=== PATIENT | male | born 1940 | race Caucasian/White ===

== ENCOUNTER 2018-09-24 03:06 | Inpatient (IN) ==
[2018-09-24] MEDS ORDERED: PROPOFOL 1,000 MG/100 ML BOTTLE IV ONE (03:54)
[2018-09-24] MEDS ORDERED: ONDANSETRON 4 MG/2 ML VIAL IV PRN (04:54)
[2018-09-24] MEDS ORDERED: MORPHINE 4 MG/1 ML VIAL IV PRN (04:54)
[2018-09-24] MEDS ORDERED: GLUCAGON 1 MG VIAL IM PRN (05:08)
[2018-09-24] MEDS ORDERED: DEXTROSE 50% 25 GM/50 ML VIAL IV PRN (05:08)
[2018-09-24] MEDS: PROPOFOL 1,000 MG/100 ML BOTTLE IV SCH ×5 (05:30→22:20)
[2018-09-24 05:47] LABS: ABG Base Excess 8.7 MMOL/L (-2.5-2.5); ABG HCO3 32.5 MMOL/L (20-26); ABG PCO2 44.7 MM HG (35-48); ABG TCO2 30.3 MMOL/L (23-27)
[2018-09-24 06:15] LABS: Basophils % 0.5 % (0.0-0.8); Eosinophils % 0.6 % (0.00-10.9); Hematocrit 27.8 VOL% (42.0-52.0); Hemoglobin 8.8 GM/DL (14.0-18.0); Immature Granulocytes % 0.5 %; Immature Granulocytes Absolute 0.03 #; Lymphocytes # 0.9 10*3/uL (1.4-4.0); Lymphocytes % 14.6 % (21.2-54.2); Mean Corpuscular HGB Conc 31.7 GM/DL (32-36); Mean Corpuscular Hemoglobin 29 PG (27-34); Mean Corpuscular Volume 90.6 FL (87-102); Mean Platelet Volume 11.4 FL (9.6-12.0); Monocytes # 0.5 10*3/uL (0.11-0.8); Monocytes % 7.5 % (1.7-12.7); Neutrophils # 4.8 10*3/uL (1.4-7.4); Neutrophils % 76.3 % (38.7-73.9); Platelet Count 134 T/CUMM (130-400); Red Blood Count 3.07 MC/CUMM (3.8-5.5); Red Cell Distribution Width 13.2 % (9.3-17.3); White Blood Count 6.3 T/CUMM (4-12)
[2018-09-24 06:49] LABS: Thyroid Stimulating Hormone 1.31 uIU/ml (0.358-3.74)
[2018-09-24 06:53] LABS: Calcium 8.6 MG/DL (8.5-10.1); Osmolality,Calculated 275.1 MOS/KG (273-304)
[2018-09-24 07:47] LABS: Apearance,Urine CLEAR (Clear); Bilirubin,Urine Negative (Negative); Blood, Urine Small mg/dL (Negative); Glucose,Urine (UA) Negative (Negative); Ketones,Urine 5 mg/dL (Negative); Mucus,Urine Occasional /LPF (Occasional); Nitrite,Urine Negative (Negative); Protein,Urine Negative; RBC,Urine 12 /HPF (0-4); Urine Color Yellow (Yellow); Urine Specific Gravity 1.008 (1.001-1.035); Urine Urobilinogen < 2.0 EU/DL (0.2-1.0); WBC,Urine <1 /HPF (0-6)
[2018-09-24] MEDS: PANTOPRAZOLE 40 MG VIAL IV SCH (08:09)
[2018-09-24] MEDS: LOSARTAN 50 MG TABLET PO SCH ×2 (08:09→21:02)
[2018-09-24] MEDS: ROSUVASTATIN 20 MG TABLET PO SCH (08:09)
[2018-09-24] MEDS: ASPIRIN CHEW 81 MG TABLET PO SCH (08:09)
[2018-09-24] MEDS: ISOSORBIDE DINITRATE 20 MG TABLET PO SCH ×3 (08:09→21:02)
[2018-09-24] MEDS: CLOPIDOGREL 75 MG TABLET PO SCH (08:09)
[2018-09-24] MEDS: CARBIDOPA/LEVODOPA 25-100 MG TABLET PO SCH ×3 (08:09→21:02)
[2018-09-24] MEDS: ENOXAPARIN 40 MG/0.4 ML SYRINGE SUBCUT SCH (08:10)
[2018-09-24] MEDS: INSULIN REGULAR 100 UNIT/ML SUBCUT SCH ×3 (08:10→17:26)
[2018-09-24] MEDS: POTASSIUM CHLORIDE 20 MEQ TABLET PO SCH ×2 (08:10→21:02)
[2018-09-24] MEDS: FUROSEMIDE 40 MG/4 ML VIAL IV SCH ×2 (08:11→15:45)
[2018-09-24 08:37] LABS: % Iron Saturation 22.6 % (18-50)
[2018-09-24] MEDS: TAMSULOSIN 0.4 MG CAPSULE PO SCH (21:03)
[2018-09-25] MEDS: INSULIN REGULAR 100 UNIT/ML SUBCUT SCH ×4 (00:42→17:14)
[2018-09-25] MEDS: PROPOFOL 1,000 MG/100 ML BOTTLE IV SCH ×4 (03:24→19:02)
[2018-09-25 03:57] LABS: ABG Base Excess 9.6 MMOL/L (-2.5-2.5); ABG HCO3 32.7 MMOL/L (20-26); ABG Oxygen Saturation 98.8 % (95-100); ABG PCO2 38.6 MM HG (35-48); ABG PH 7.546 (7.35-7.45); ABG PO2 176.8 MM HG (80-95); ABG TCO2 33.9 MMOL/L (23-27); Pt O2 Delivery Device Ventilator
[2018-09-25 04:24] LABS: Basophils % 0.7 % (0.0-0.8); Eosinophils # 0.2 10*3/uL (0.0-0.87); Eosinophils % 3.1 % (0.00-10.9); Hematocrit 28.9 VOL% (42.0-52.0); Immature Granulocytes % 0.4 %; Immature Granulocytes Absolute 0.02 #; Lymphocytes # 1.3 10*3/uL (1.4-4.0); Lymphocytes % 23.7 % (21.2-54.2); Mean Corpuscular HGB Conc 31.1 GM/DL (32-36); Mean Corpuscular Hemoglobin 28 PG (27-34); Mean Corpuscular Volume 90.6 FL (87-102); Mean Platelet Volume 11.3 FL (9.6-12.0); Monocytes # 0.6 10*3/uL (0.11-0.8); Neutrophils # 3.4 10*3/uL (1.4-7.4); Neutrophils % 61.1 % (38.7-73.9); Platelet Count 132 T/CUMM (130-400); Red Blood Count 3.19 MC/CUMM (3.8-5.5); Red Cell Distribution Width 13.7 % (9.3-17.3); White Blood Count 5.6 T/CUMM (4-12)
[2018-09-25 04:41] LABS: Calcium 8.4 MG/DL (8.5-10.1); Potassium 4.3 MMOL/L (3.5-5.1)
[2018-09-25 04:45] LABS: Prealbumin 18.9 MG/DL (20-40)
[2018-09-25] MEDS: ROSUVASTATIN 20 MG TABLET PO SCH (08:08)
[2018-09-25] MEDS: FUROSEMIDE 40 MG/4 ML VIAL IV SCH ×2 (08:08→15:57)
[2018-09-25] MEDS: ISOSORBIDE DINITRATE 20 MG TABLET PO SCH ×3 (08:08→20:28)
[2018-09-25] MEDS: CLOPIDOGREL 75 MG TABLET PO SCH (08:09)
[2018-09-25] MEDS: LOSARTAN 50 MG TABLET PO SCH ×2 (08:09→20:28)
[2018-09-25] MEDS: ASPIRIN CHEW 81 MG TABLET PO SCH (08:09)
[2018-09-25] MEDS: CARBIDOPA/LEVODOPA 25-100 MG TABLET PO SCH ×3 (08:09→20:28)
[2018-09-25] MEDS: ENOXAPARIN 40 MG/0.4 ML SYRINGE SUBCUT SCH (08:10)
[2018-09-25] MEDS: PANTOPRAZOLE 40 MG VIAL IV SCH (08:10)
[2018-09-25] MEDS: POTASSIUM CHLORIDE 20 MEQ TABLET PO SCH ×2 (08:17→20:29)
[2018-09-25] MEDS: TAMSULOSIN 0.4 MG CAPSULE PO SCH (20:29)
[2018-09-26] MEDS: PROPOFOL 1,000 MG/100 ML BOTTLE IV SCH ×7 (00:10→21:24)
[2018-09-26] MEDS: INSULIN REGULAR 100 UNIT/ML SUBCUT SCH ×4 (01:17→17:14)
[2018-09-26 03:21] LABS: ABG Base Excess 6.6 MMOL/L (-2.5-2.5); ABG HCO3 30.4 MMOL/L (20-26); ABG Oxygen Saturation 99.5 % (95-100); ABG PCO2 41.2 MM HG (35-48); ABG TCO2 27.8 MMOL/L (23-27); Allen Test Positive; Pt O2 Delivery Device Ventilator
[2018-09-26] MEDS: FUROSEMIDE 40 MG/4 ML VIAL IV SCH ×2 (08:30→16:29)
[2018-09-26] MEDS ORDERED: hydrALAZINE 20 MG/1 ML VIAL IV PRN (08:30)
[2018-09-26] MEDS: POTASSIUM CHLORIDE 20 MEQ TABLET PO SCH ×2 (08:31→21:02)
[2018-09-26] MEDS: ASPIRIN CHEW 81 MG TABLET PO SCH (08:31)
[2018-09-26] MEDS: CARBIDOPA/LEVODOPA 25-100 MG TABLET PO SCH ×3 (08:31→21:02)
[2018-09-26] MEDS: ISOSORBIDE DINITRATE 20 MG TABLET PO SCH ×3 (08:32→21:02)
[2018-09-26] MEDS: PANTOPRAZOLE 40 MG VIAL IV SCH (08:32)
[2018-09-26] MEDS: ROSUVASTATIN 20 MG TABLET PO SCH (08:32)
[2018-09-26] MEDS: CLOPIDOGREL 75 MG TABLET PO SCH (08:32)
[2018-09-26] MEDS: ENOXAPARIN 40 MG/0.4 ML SYRINGE SUBCUT SCH (08:32)
[2018-09-26] MEDS: LOSARTAN 50 MG TABLET PO SCH ×2 (08:32→21:03)
[2018-09-26] MEDS: CARVEDILOL 3.125 MG TABLET PO SCH ×2 (09:58→21:03)
[2018-09-26] MEDS: hydrALAZINE 10 MG TABLET PO SCH ×2 (09:58→21:03)
[2018-09-26] MEDS: TAMSULOSIN 0.4 MG CAPSULE PO SCH (21:03)
[2018-09-27] MEDS: INSULIN REGULAR 100 UNIT/ML SUBCUT SCH ×4 (01:12→17:44)
[2018-09-27] MEDS: PROPOFOL 1,000 MG/100 ML BOTTLE IV SCH ×6 (01:32→21:43)
[2018-09-27 03:03] LABS: Allen Test Positive; Pt O2 Delivery Device Ventilator
[2018-09-27 03:09] LABS: ABG Base Excess 7.4 MMOL/L (-2.5-2.5); ABG HCO3 31.2 MMOL/L (20-26); ABG Oxygen Saturation 99.2 % (95-100); ABG PCO2 46.7 MM HG (35-48); ABG PH 7.449 (7.35-7.45); ABG TCO2 29.5 MMOL/L (23-27)
[2018-09-27 04:17] LABS: Basophils % 0.3 % (0.0-0.8); Eosinophils # 0.1 10*3/uL (0.0-0.87); Eosinophils % 1.2 % (0.00-10.9); Hematocrit 30.8 VOL% (42.0-52.0); Hemoglobin 9.6 GM/DL (14.0-18.0); Immature Granulocytes % 0.7 %; Immature Granulocytes Absolute 0.05 #; Lymphocytes # 1.2 10*3/uL (1.4-4.0); Lymphocytes % 17.1 % (21.2-54.2); Mean Corpuscular HGB Conc 31.2 GM/DL (32-36); Mean Corpuscular Hemoglobin 29 PG (27-34); Mean Corpuscular Volume 93.1 FL (87-102); Mean Platelet Volume 12.2 FL (9.6-12.0); Monocytes # 0.6 10*3/uL (0.11-0.8); Monocytes % 8.4 % (1.7-12.7); Neutrophils # 5.2 10*3/uL (1.4-7.4); Neutrophils % 72.3 % (38.7-73.9); Platelet Count 125 T/CUMM (130-400); Red Blood Count 3.31 MC/CUMM (3.8-5.5); Red Cell Distribution Width 13.8 % (9.3-17.3); White Blood Count 7.2 T/CUMM (4-12)
[2018-09-27 04:34] LABS: Calcium 8.6 MG/DL (8.5-10.1); Osmolality,Calculated 294.7 MOS/KG (273-304); Potassium 4.6 MMOL/L (3.5-5.1)
[2018-09-27] MEDS: FUROSEMIDE 40 MG/4 ML VIAL IV SCH ×2 (09:17→16:02)
[2018-09-27] MEDS: ENOXAPARIN 40 MG/0.4 ML SYRINGE SUBCUT SCH (09:17)
[2018-09-27] MEDS: CLOPIDOGREL 75 MG TABLET PO SCH (09:17)
[2018-09-27] MEDS: POTASSIUM CHLORIDE 20 MEQ TABLET PO SCH ×2 (09:17→21:31)
[2018-09-27] MEDS: PANTOPRAZOLE 40 MG VIAL IV SCH (09:17)
[2018-09-27] MEDS: LOSARTAN 50 MG TABLET PO SCH ×2 (09:18→21:34)
[2018-09-27] MEDS: hydrALAZINE 10 MG TABLET PO SCH ×2 (09:18→21:31)
[2018-09-27] MEDS: CARVEDILOL 3.125 MG TABLET PO SCH ×2 (09:18→21:32)
[2018-09-27] MEDS: ISOSORBIDE DINITRATE 20 MG TABLET PO SCH ×3 (09:18→21:31)
[2018-09-27] MEDS: CARBIDOPA/LEVODOPA 25-100 MG TABLET PO SCH ×3 (09:18→21:31)
[2018-09-27] MEDS: ROSUVASTATIN 20 MG TABLET PO SCH (09:18)
[2018-09-27] MEDS: ASPIRIN CHEW 81 MG TABLET PO SCH (09:18)
[2018-09-27] MEDS: INSULIN GLARGINE 100 UNIT/ML SUBCUT SCH (21:32)
[2018-09-27] MEDS: TAMSULOSIN 0.4 MG CAPSULE PO SCH (21:32)
[2018-09-28] MEDS: INSULIN REGULAR 100 UNIT/ML SUBCUT SCH ×4 (01:04→18:51)
[2018-09-28] MEDS: PROPOFOL 1,000 MG/100 ML BOTTLE IV SCH ×5 (02:04→20:40)
[2018-09-28 02:48] LABS: Basophils % 0.3 % (0.0-0.8); Eosinophils # 0.1 10*3/uL (0.0-0.87); Hematocrit 29.9 VOL% (42.0-52.0); Hemoglobin 9.1 GM/DL (14.0-18.0); Immature Granulocytes % 0.4 %; Immature Granulocytes Absolute 0.03 #; Lymphocytes # 0.9 10*3/uL (1.4-4.0); Lymphocytes % 12.5 % (21.2-54.2); Mean Corpuscular HGB Conc 30.4 GM/DL (32-36); Mean Corpuscular Hemoglobin 28 PG (27-34); Mean Corpuscular Volume 93.1 FL (87-102); Mean Platelet Volume 12.3 FL (9.6-12.0); Monocytes # 0.6 10*3/uL (0.11-0.8); Monocytes % 9.4 % (1.7-12.7); Neutrophils # 5.2 10*3/uL (1.4-7.4); Neutrophils % 76.4 % (38.7-73.9); Platelet Count 116 T/CUMM (130-400); Red Blood Count 3.21 MC/CUMM (3.8-5.5); Red Cell Distribution Width 13.7 % (9.3-17.3); White Blood Count 6.8 T/CUMM (4-12)
[2018-09-28 02:58] LABS: ABG Base Excess 8.2 MMOL/L (-2.5-2.5); ABG Oxygen Saturation 98.8 % (95-100); ABG PCO2 46.7 MM HG (35-48); ABG PH 7.459 (7.35-7.45); ABG TCO2 30.2 MMOL/L (23-27); Allen Test Positive; Pt O2 Delivery Device Ventilator
[2018-09-28 03:06] LABS: Osmolality,Calculated 303.5 MOS/KG (273-304); Potassium 4.9 MMOL/L (3.5-5.1)
[2018-09-28 03:15] LABS: Prealbumin 11.9 MG/DL (20-40)
[2018-09-28] MEDS: ENOXAPARIN 40 MG/0.4 ML SYRINGE SUBCUT SCH (09:34)
[2018-09-28] MEDS: ROSUVASTATIN 20 MG TABLET PO SCH (09:34)
[2018-09-28] MEDS: ISOSORBIDE DINITRATE 20 MG TABLET PO SCH ×3 (09:34→22:06)
[2018-09-28] MEDS: CARBIDOPA/LEVODOPA 25-100 MG TABLET PO SCH ×3 (09:35→22:06)
[2018-09-28] MEDS: ASPIRIN CHEW 81 MG TABLET PO SCH (09:35)
[2018-09-28] MEDS: CARVEDILOL 6.25 MG TABLET PO SCH ×2 (09:35→22:06)
[2018-09-28] MEDS: PANTOPRAZOLE 40 MG VIAL IV SCH (09:35)
[2018-09-28] MEDS: CLOPIDOGREL 75 MG TABLET PO SCH (09:35)
[2018-09-28] MEDS: LOSARTAN 50 MG TABLET PO SCH ×2 (09:35→22:06)
[2018-09-28] MEDS: hydrALAZINE 25 MG TABLET PO SCH ×4 (09:35→22:06)
[2018-09-28] MEDS: POTASSIUM CHLORIDE 20 MEQ TABLET PO SCH ×2 (09:57→22:06)
[2018-09-28] MEDS: FUROSEMIDE 40 MG/4 ML VIAL IV SCH ×2 (10:01→11:27)
[2018-09-28] MEDS: glipiZIDE 5 MG TABLET PO SCH (10:11)
[2018-09-28] MEDS: INSULIN GLARGINE 100 UNIT/ML SUBCUT SCH ×3 (11:28→22:06)
[2018-09-28] MEDS: cefTRIAXone 1,000 MG in SYRINGE 1 EACH IV SCH (11:37)
[2018-09-28] MEDS: TAMSULOSIN 0.4 MG CAPSULE PO SCH (22:06)
[2018-09-29] MEDS: INSULIN REGULAR 100 UNIT/ML SUBCUT SCH ×4 (01:01→18:11)
[2018-09-29] MEDS: PROPOFOL 1,000 MG/100 ML BOTTLE IV SCH ×2 (04:00→10:35)
[2018-09-29 04:07] LABS: Basophils % 0.5 % (0.0-0.8); Eosinophils # 0.1 10*3/uL (0.0-0.87); Eosinophils % 1.3 % (0.00-10.9); Hematocrit 29.1 VOL% (42.0-52.0); Hemoglobin 8.9 GM/DL (14.0-18.0); Immature Granulocytes % 0.5 %; Immature Granulocytes Absolute 0.03 #; Lymphocytes % 16.6 % (21.2-54.2); Mean Corpuscular HGB Conc 30.6 GM/DL (32-36); Mean Corpuscular Hemoglobin 28 PG (27-34); Mean Platelet Volume 12.1 FL (9.6-12.0); Monocytes # 0.6 10*3/uL (0.11-0.8); Monocytes % 9.6 % (1.7-12.7); Neutrophils # 4.3 10*3/uL (1.4-7.4); Neutrophils % 71.5 % (38.7-73.9); Platelet Count 131 T/CUMM (130-400); Red Blood Count 3.13 MC/CUMM (3.8-5.5); Red Cell Distribution Width 13.8 % (9.3-17.3)
[2018-09-29 04:42] LABS: Calcium 9.1 MG/DL (8.5-10.1); Osmolality,Calculated 305.7 MOS/KG (273-304); Potassium 4.5 MMOL/L (3.5-5.1)
[2018-09-29 05:03] LABS: ABG Base Excess 8.5 MMOL/L (-2.5-2.5); ABG HCO3 32.3 MMOL/L (20-26); ABG PCO2 41.4 MM HG (35-48); ABG PH 7.503 (7.35-7.45); ABG TCO2 29.9 MMOL/L (23-27)
[2018-09-29 05:09] LABS: Calcium 9.1 MG/DL (8.5-10.1); Osmolality,Calculated 301.1 MOS/KG (273-304); Potassium 4.5 MMOL/L (3.5-5.1)
[2018-09-29] MEDS: CARBIDOPA/LEVODOPA 25-100 MG TABLET PO SCH ×3 (08:57→21:29)
[2018-09-29] MEDS: POTASSIUM CHLORIDE 20 MEQ TABLET PO SCH ×2 (08:58→21:28)
[2018-09-29] MEDS: ISOSORBIDE DINITRATE 20 MG TABLET PO SCH ×3 (08:58→21:28)
[2018-09-29] MEDS: CLOPIDOGREL 75 MG TABLET PO SCH (08:58)
[2018-09-29] MEDS: hydrALAZINE 25 MG TABLET PO SCH ×3 (08:58→21:28)
[2018-09-29] MEDS: CARVEDILOL 6.25 MG TABLET PO SCH ×2 (08:58→21:28)
[2018-09-29] MEDS: LOSARTAN 50 MG TABLET PO SCH ×2 (08:58→21:28)
[2018-09-29] MEDS: glipiZIDE 5 MG TABLET PO SCH (08:58)
[2018-09-29] MEDS: ASPIRIN CHEW 81 MG TABLET PO SCH (08:58)
[2018-09-29] MEDS: methylPREDNISolone SOD SUC 40 MG/1 ML VIAL IV SCH ×2 (08:58→15:50)
[2018-09-29] MEDS: ROSUVASTATIN 20 MG TABLET PO SCH (08:58)
[2018-09-29] MEDS: FUROSEMIDE 40 MG/4 ML VIAL IV SCH (08:59)
[2018-09-29] MEDS: PANTOPRAZOLE 40 MG VIAL IV SCH (08:59)
[2018-09-29] MEDS: cefTRIAXone 1,000 MG in SYRINGE 1 EACH IV SCH (09:00)
[2018-09-29] MEDS: ENOXAPARIN 40 MG/0.4 ML SYRINGE SUBCUT SCH (09:00)
[2018-09-29] MEDS: INSULIN GLARGINE 100 UNIT/ML SUBCUT SCH ×2 (09:18→21:28)
[2018-09-29] MEDS: DORNASE ALFA 2.5 MG/2.5 ML VIAL RESP TX SCH ×2 (09:27→18:48)
[2018-09-29] MEDS ORDERED: glipiZIDE 5 MG TABLET PO SCH (16:30)
[2018-09-29] MEDS: metFORMIN 500 MG TABLET PO SCH (17:16)
[2018-09-29] MEDS: glipiZIDE 5 MG TABLET PER TUBE SCH (17:16)
[2018-09-29] MEDS: TAMSULOSIN 0.4 MG CAPSULE PO SCH (21:28)
[2018-09-30] MEDS: INSULIN REGULAR 100 UNIT/ML SUBCUT SCH ×4 (00:38→18:12)
[2018-09-30] MEDS: methylPREDNISolone SOD SUC 40 MG/1 ML VIAL IV SCH ×3 (00:38→16:10)
[2018-09-30 04:11] LABS: Pt O2 Delivery Device Ventilator
[2018-09-30 04:12] LABS: ABG HCO3 31.8 MMOL/L (20-26); ABG Oxygen Saturation 99.3 % (95-100); ABG PCO2 46.1 MM HG (35-48); ABG PH 7.461 (7.35-7.45); ABG TCO2 29.8 MMOL/L (23-27)
[2018-09-30 05:31] LABS: Calcium 9.6 MG/DL (8.5-10.1); Osmolality,Calculated 321.6 MOS/KG (273-304); Potassium 4.6 MMOL/L (3.5-5.1)
[2018-09-30 06:08] LABS: Basophils % 0.2 % (0.0-0.8); Hematocrit 30.6 VOL% (42.0-52.0); Hemoglobin 9.4 GM/DL (14.0-18.0); Immature Granulocytes % 0.4 %; Immature Granulocytes Absolute 0.02 #; Lymphocytes # 0.8 10*3/uL (1.4-4.0); Lymphocytes % 17.4 % (21.2-54.2); Mean Corpuscular HGB Conc 30.7 GM/DL (32-36); Mean Corpuscular Hemoglobin 29 PG (27-34); Mean Corpuscular Volume 93.3 FL (87-102); Mean Platelet Volume 11.8 FL (9.6-12.0); Monocytes # 0.6 10*3/uL (0.11-0.8); Monocytes % 14.1 % (1.7-12.7); Neutrophils % 67.9 % (38.7-73.9); Platelet Count 153 T/CUMM (130-400); Red Blood Count 3.28 MC/CUMM (3.8-5.5); Red Cell Distribution Width 13.6 % (9.3-17.3); White Blood Count 4.5 T/CUMM (4-12)
[2018-09-30] MEDS: PROPOFOL 1,000 MG/100 ML BOTTLE IV SCH (07:00)
[2018-09-30] MEDS: DORNASE ALFA 2.5 MG/2.5 ML VIAL RESP TX SCH ×2 (07:36→18:55)
[2018-09-30] MEDS: GABAPENTIN 100 MG CAPSULE PO SCH ×2 (08:30→22:05)
[2018-09-30] MEDS: glipiZIDE 5 MG TABLET PER TUBE SCH ×2 (08:30→16:20)
[2018-09-30] MEDS: ASPIRIN CHEW 81 MG TABLET PO SCH (08:30)
[2018-09-30] MEDS: SODIUM CHLORIDE 0.9% 1,000 ML IV SCH ×3 (08:30→20:00)
[2018-09-30] MEDS: metFORMIN 500 MG TABLET PO SCH ×2 (08:30→16:20)
[2018-09-30] MEDS ORDERED: TAMSULOSIN 0.4 MG CAPSULE PO SCH ×2 (09:00→21:00)
[2018-09-30] MEDS: POTASSIUM CHLORIDE 20 MEQ TABLET PO SCH ×2 (09:20→22:05)
[2018-09-30] MEDS: CARVEDILOL 12.5 MG TABLET PO SCH ×2 (09:20→22:06)
[2018-09-30] MEDS: CARBIDOPA/LEVODOPA 25-100 MG TABLET PO SCH ×3 (09:20→22:06)
[2018-09-30] MEDS: INSULIN GLARGINE 100 UNIT/ML SUBCUT SCH ×2 (09:20→22:06)
[2018-09-30] MEDS: ROSUVASTATIN 20 MG TABLET PO SCH (09:20)
[2018-09-30] MEDS: CLOPIDOGREL 75 MG TABLET PO SCH (09:20)
[2018-09-30] MEDS: LOSARTAN 50 MG TABLET PO SCH ×2 (09:20→22:06)
[2018-09-30] MEDS: PANTOPRAZOLE 40 MG VIAL IV SCH (09:20)
[2018-09-30] MEDS: ISOSORBIDE DINITRATE 20 MG TABLET PO SCH ×3 (09:20→22:05)
[2018-09-30] MEDS: hydrALAZINE 25 MG TABLET PO SCH ×3 (09:20→22:05)
[2018-09-30] MEDS: cefTRIAXone 1,000 MG in SYRINGE 1 EACH IV SCH (09:25)
[2018-09-30] MEDS: ENOXAPARIN 40 MG/0.4 ML SYRINGE SUBCUT SCH (09:25)
[2018-09-30] MEDS ORDERED: amLODIPine 5 MG TABLET PO SCH ×2 (21:00)
[2018-10-01] MEDS: SODIUM CHLORIDE 0.9% 1,000 ML IV SCH ×2 (01:15→06:13)
[2018-10-01] MEDS: methylPREDNISolone SOD SUC 40 MG/1 ML VIAL IV SCH ×2 (01:50→07:55)
[2018-10-01] MEDS: INSULIN REGULAR 100 UNIT/ML SUBCUT SCH ×3 (01:50→12:11)
[2018-10-01 03:33] LABS: Basophils % 0.2 % (0.0-0.8); Hematocrit 30.7 VOL% (42.0-52.0); Hemoglobin 9.1 GM/DL (14.0-18.0); Immature Granulocytes % 0.6 %; Immature Granulocytes Absolute 0.03 #; Lymphocytes # 0.7 10*3/uL (1.4-4.0); Lymphocytes % 13.9 % (21.2-54.2); Mean Corpuscular HGB Conc 29.6 GM/DL (32-36); Mean Corpuscular Hemoglobin 29 PG (27-34); Mean Corpuscular Volume 96.5 FL (87-102); Monocytes # 0.4 10*3/uL (0.11-0.8); Monocytes % 7.7 % (1.7-12.7); Neutrophils % 77.6 % (38.7-73.9); Platelet Count 149 T/CUMM (130-400); Red Blood Count 3.18 MC/CUMM (3.8-5.5); Red Cell Distribution Width 13.7 % (9.3-17.3); White Blood Count 5.1 T/CUMM (4-12)
[2018-10-01 03:50] LABS: Calcium 9.1 MG/DL (8.5-10.1); Osmolality,Calculated 330.6 MOS/KG (273-304); Potassium 4.8 MMOL/L (3.5-5.1)
[2018-10-01 04:26] LABS: Prealbumin 14.9 MG/DL (20-40)
[2018-10-01] MEDS: PROPOFOL 1,000 MG/100 ML BOTTLE IV SCH (06:14)
[2018-10-01] MEDS: DORNASE ALFA 2.5 MG/2.5 ML VIAL RESP TX SCH (07:30)
[2018-10-01] MEDS: CLOPIDOGREL 75 MG TABLET PO SCH (07:45)
[2018-10-01] MEDS: metFORMIN 500 MG TABLET PO SCH (07:45)
[2018-10-01] MEDS: GABAPENTIN 100 MG CAPSULE PO SCH (07:45)
[2018-10-01] MEDS: glipiZIDE 5 MG TABLET PER TUBE SCH (07:45)
[2018-10-01] MEDS: ASPIRIN CHEW 81 MG TABLET PO SCH (07:45)
[2018-10-01] MEDS: ROSUVASTATIN 20 MG TABLET PO SCH (07:45)
[2018-10-01] MEDS: PANTOPRAZOLE 40 MG VIAL IV SCH (07:50)
[2018-10-01] MEDS: cefTRIAXone 1,000 MG in SYRINGE 1 EACH IV SCH (09:15)
[2018-10-01] MEDS: ENOXAPARIN 40 MG/0.4 ML SYRINGE SUBCUT SCH (09:15)
[2018-10-01] MEDS: INSULIN GLARGINE 100 UNIT/ML SUBCUT SCH (09:15)
[2018-10-01] MEDS: CARVEDILOL 12.5 MG TABLET PO SCH (09:20)
[2018-10-01] MEDS: CARBIDOPA/LEVODOPA 25-100 MG TABLET PO SCH (09:20)
[2018-10-01] MEDS: hydrALAZINE 25 MG TABLET PO SCH (09:20)
[2018-10-01] MEDS: ISOSORBIDE DINITRATE 20 MG TABLET PO SCH (09:20)
[2018-10-01] MEDS: POTASSIUM CHLORIDE 20 MEQ TABLET PO SCH (09:20)
[2018-10-01] MEDS: LOSARTAN 50 MG TABLET PO SCH (09:20)
[2018-10-01] MEDS ORDERED: ALBUTEROL/IPRATROPIUM 3 ML NEB RESP TX SCH (13:00)
[2018-10-01 13:52] VITALS: BP 149/79
== END 2018-10-01 13:47 | DRG 207 ==
LOC: N.CC 04:40 → SUATTDRO 04:40 → N.ICU 09-27 16:13
PROVIDERS: ADMIT Internal Medicine Geriatric Medicine; ATTEND Internal Medicine